=== PATIENT | female | born 1985 | race Caucasian/White ===

== ENCOUNTER 2018-07-06 07:09 | Inpatient (IN) | payer OTHER ==
[2018-07-06] MEDS ORDERED: Nalbuphine 20 MG/ML 1 ML Syringe IVPUSH PRN (07:54)
[2018-07-06] MEDS ORDERED: Ondansetron 4 MG/2 ML SDV IVPUSH PRN (07:54)
[2018-07-06] MEDS ORDERED: Acetaminophen 325 MG Tab PO PRN (07:54)
[2018-07-06] MEDS ORDERED: Sodium Chloride 0.9% 10 ML Syringe FLUSH PRN (07:54)
[2018-07-06] MEDS ORDERED: Oxytocin/Lactated Ringers 10 UNIT/1,000 ML BAG IV SCH (08:00)
[2018-07-06] MEDS ORDERED: Oxytocin/Lactated Ringers 20 UNIT/1,000 ML BAG IV SCH (08:00)
[2018-07-06] MEDS: Lactated Ringers 1,000 ML IV SCH ×3 (08:25→20:14)
--- NOTE | 2018-07-06 09:44 | PCM.LDHP ---
L&D History of Present Illness - General Date of Service: 07/06/18 Admit Problem/Dx: Patient Status Order with Admit Dx/Problem 07/06/18 07:54 Patient Status [ADT] Routine Admission Diagnosis/Problem Admission Diagnosis/Problem 07/06/18 09:24 33-year-old 2 para 1001 white female in for elective induction of labor at 39-3/7 weeks gestational age JONAS of 07/10/2018 Source of Information: Patient History Limitations: Reports: No Limitations - History of Present Illness Introduction:: Светлана is a 33-year-old 2 para 1001 white female with an JONAS of the 2018 placing her at 39-3/7 weeks gestational age upon admission for elective induction of labor. Patient's JONAS is set by a certain last menstrual period which started on 10/03/2017 and is supported by 2 ultrasounds done on 2017 and 06/20/2018. Her menarche was age 13, menstrual cycles every 30 days using no control to time conception. LMP certain and definite occurring on 10/03/2017. Past obstetric experience includes a delivery of a female infant on 01/30/2016 at 38 weeks gestational age7 lbs. 7 oz.NSVDepidural for pain control labor. history. Patient has been on baby aspirin 81 mg daily for prophylaxis for preeclampsia as she had preeclampsia with her first . Declines flu vaccination and she declined genetic evaluation. She desires epidural in L&D. Patient has had some borderline elevated blood pressure readings but recently they have been within normal limits. She is group B strep negative. She has a history of gestational diabetes, is on glyburide 2.5 mg by mouth every at bedtime and has had reasonably good blood sugars. Blood sugars appeared to be under good control. She has had some borderline elevated blood pressures at home but recently in clinic they have been entirely normal. She plans to breast- feed. She declined T dap Vaccination she has a history of genital HSV infection. She has been on acyclovir 400 mg by mouth 3 times a day times last 4 weeks. She has no symptoms or signs of genital HSV infection at this time. Patient's weight gain has been from 193-205.6 pounds for approximately a 13 pound weight gain. Fundal height growth has been somewhat ahead of schedule however baby has been riding very high and this is felt to be the potential cause. Laboratory testing and shows blood to be O+ with negative antibody screen. Hemoglobin first middle visit was 13.1 g/dL and platelets are 284,000. She is rubella immune. RPR is nonreactive. Urine culture was unremarkable. HIV assay was negative. Patient declined GC and chlamydia. Second trimester testing showed a hemoglobin of 12.3 g/dL. Platelets are 292,000. One-hour GTT was elevated and patient had an abnormal 3 hour GTT given her the diagnosis of gestational diabetes. Follow-up with labs at home consisting four-time per day blood sugars which have been within normal limits. She was started on glyburide for some mildly elevated a.m. blood sugars. Group B strep screen was negative. Allergies: T dap vaccines (Adacel) which caused seizure Medications: 1. Acyclovir 400 mg by mouth 3 times a day for genital HSV prophylaxis 2. Glyburide 2.5 mg by mouth daily at bedtime 3. Baby aspirin-81 mg daily 4. Zofran or milligrams orally when necessary for nausea 5. vitamins 1 daily. Past medical history: 1. 01/30/2016 2. Preeclampsia with last . 3. Scoliosis Past surgical history: Unremarkable Family history: Mother is alive with hypertension and hypothyroidismon meds. Father with adult onset diabetes mellitusdiet controlled. 2 brothers and one sister are alive and well. Maternal grandmother is secondary to old age. Maternal grandfather secondary to lung and heart problems related to smoking and drinking- at age 40. Paternal grandmother is alive and has a history of adult-onset diabetes. Paternal grandfather is secondary to lung cancerwas a smoker. No anesthesia, bleeding, blood clotting problems or Rensi problems noted in the family. Social history: Patient is , lives in [facility], is Hardik. She does not use any significant most alcohol, drugs or tobacco. Review of systems: In general patient has no complaints. He has been active. Occasional contractions over the weekend. No loss of fluid or actual labor. Skin: Negative Lungs: No infectious symptoms or shortness of breath Cardiovascular: No chest pain or exercise intolerance Breasts: No lumps, changes in size, pain, dimpling, discharge or axillary or supraclavicular concerns. Changes associated with . GI: Negative : Negative Musculoskeletal: Negative Neurological: Negative In general the patient is well-developed, well-nourished, pleasant female of stated age in no acute distress. Skin is warm dry without lesions. HEENT, neck and back within normal limits. Lungs are clear with good breath sounds in all lung watters. Cardiovascular exam shows regular and rhythm without murmurs. Breast exam deferred having been done earlier in . Abdomen is flat, soft, nontender without masses or organomegaly. Positive bowel sounds are noted. No inguinal lymphadenopathy or hernias are noted. Genital cervix is 1 cm, 80% effaced, soft, -4 station, cephalic presentationconfirmed by ultrasound.. Extremities and neurological exam are grossly within normal limits. - Related Data Allergies/Adverse Reactions: Allergies Allergy/AdvReac Type Severity Reaction Status Date / Time No Known Allergies Allergy Verified 07/06/18 07:53 Home Medications: Home Meds Acyclovir 400 mg PO TID 07/06/18 [History] Aspirin 81 mg PO DAILY 07/06/18 [History] Ondansetron [Ondansetron ODT] 4 mg BUCCAL Q6HR PRN 07/06/18 [History] PNV95/Ferrous Fumarate/FA [ Tablet] 1 tab PO DAILY 07/06/18 [History] glyBURIDE [Glyburide] 2.5 mg PO BEDTIME 07/06/18 [History] H&P Review of Systems - Review of Systems: Review Of Systems: See Below L&D Exam - Exam Exam: See Below - Vital Signs Weight: 94.347 kg - Patient Data Lab Results Last 24 hrs: Laboratory Results - last 24 hr 07/06/18 Range/Units 07:52 WBC 9.65 (3.98-10.04) K/mm3 RBC 4.27 (3.98-5.22) M/mm3 Hgb 11.9 (11.2-15.7) gm/L Hct 35.8 (34.1-44.9) % MCV 83.8 (79.4-94.8) fl MCH 27.9 (25.6-32.2) pg MCHC 33.2 (32.2-35.5) g/dl RDW Std Deviation 43.2 (36.4-46.3) fL Plt Count 284 (182-369) K/mm3 MPV 10.1 (9.4-12.3) fl Neut % (Auto) 69.1 (34.0-71.1) % Lymph % (Auto) 18.8 L (19.3-51.7) % [place] % (Auto) 9.5 (4.7-12.5) % Eos % (Auto) 1.7 (0.7-5.8) Baso % (Auto) 0.2 (0.1-1.2) % Neut # (Auto) 6.67 H (1.56-6.13) K/mm3 Lymph # (Auto) 1.81 (1.18-3.74) K/mm3 [place] # (Auto) 0.92 H (0.24-0.36) K/mm3 Eos # (Auto) 0.16 (0.04-0.36) K/mm3 Baso # (Auto) 0.02 (0.01-0.08) K/mm3 Result Diagrams: 07/06/18 07:52 Problem List Initiated/Reviewed/Updated: Yes Orders Last 24hrs: Active Orders 24 hr Category Date Time Status Patient Status [ADT] Routine ADT 07/06/18 07:54 Active Activity as Tolerated [RC] PFP Care 07/06/18 07:54 Active Communication Order [RC] ASDIRECTED Care 07/06/18 07:54 Active Heart Tones [RC] ASDIRECTED Care 07/06/18 07:54 Active Influenza Vaccine Charge [RC] .DISCHARGE Care 07/06/18 08:53 Active Notify Provider [RC] PFP Care 07/06/18 07:54 Active Notify Provider [RC] PRN Care 07/06/18 07:54 Active Peripheral IV Care [RC] . DIRECTED Care 07/06/18 07:54 Active Pump Management, Intrathecal [RC] ASDIRECTED Care 07/06/18 07:55 Active Urinary Catheter Assessment [RC] ASDIRECTED Care 07/06/18 07:54 Active Vital Signs [RC] PER UNIT ROUTINE Care 07/06/18 07:54 Active Regular Diet [DIET] Diet 07/06/18 Lunch Active RAPID PLASMA REAGIN,RPR [CHEM] Routine Lab 07/07/18 06:00 Ordered Acetaminophen [Tylenol] Med 07/06/18 07:54 Active 650 mg PO Q4H PRN Lactated Ringers [Ringers, Lactated] 1,000 ml Med 07/06/18 08:00 Active IV ASDIRECTED Nalbuphine [Nubain] Med 07/06/18 07:54 Active 10 mg IVPUSH Q2H PRN Ondansetron [Zofran] Med 07/06/18 07:54 Active 4 mg IVPUSH Q4H PRN Oxytocin/Lactated Ringers [Pitocin in LR 10 Units/1,000 Med 07/06/18 08:00 Active ML] 10 unit in 1,000 ml IV TITRATE Oxytocin/Lactated Ringers [Pitocin in LR 20 Units/1,000 Med 07/06/18 08:00 Active ML] 20 unit in 1,000 ml IV TITRATE Sodium Chloride 0.9% [Saline Flush] Med 07/06/18 07:54 Active 10 ml FLUSH ASDIRECTED PRN Electronic Heart Tones Ext w TOCO [WOMSER] Oth 07/06/18 07:54 Ordered Routine Electronic Heart Tones Internal [WOMSER] Per Unit Oth 07/06/18 07:54 Ordered Routine Peripheral IV Insertion Adult [OM.PC] Routine Oth 07/06/18 07:54 Ordered Resuscitation Status Routine Resus Stat 07/06/18 07:54 Ordered Medication Orders Acetaminophen (Tylenol) 650 mg PO Q4H PRN PRN Reason: Pain (Mild 1-3) and fever Lactated Ringer's (Ringers, Lactated) 1,000 mls @ 100 mls/hr IV ASDIRECTED [facility] Last Admin: 07/06/18 08:25 Dose: 100 mls/hr Oxytocin/Lactated Ringer's (Pitocin In Lr 10 Units/1,000 Ml) 10 unit in 1,000 mls @ 12 mls/hr IV TITRATE [facility]; Protocol Last Admin: 07/06/18 08:26 Dose: 2 munits/min, 12 mls/hr Oxytocin/Lactated Ringer's (Pitocin In Lr 20 Units/1,000 Ml) 20 unit in 1,000 mls @ 499.03 mls/hr IV TITRATE [facility]; Protocol Nalbuphine HCl (Nubain) 10 mg IVPUSH Q2H PRN PRN Reason: pain Ondansetron HCl (Zofran) 4 mg IVPUSH Q4H PRN PRN Reason: Nausea/Vomiting Sodium Chloride (Saline Flush) 10 ml FLUSH ASDIRECTED PRN PRN Reason: Keep Vein Open Assessment/Plan Comment:: 1. 39-3/7 week intrauterine , admitted for elective induction of labor 2. Gestational diabetes under good control with diet, activity and glyburide therapy. 3. Group B strep screen negative 4. Patient desires epidural for labor analgesia 5. Patient plans to breast-feed 6. History of genital HSVon acyclovir prophylaxis since 36 weeks with no signs/ symptoms of HSV infection at present 7. Patient declined flu vaccination and T dap 8. Patient has a history of preeclampsia with first , has been on baby aspirin 81 mg per day throughout this , borderline blood pressure evaluations at home but were normal in clinic. Plan: 1. Pitocin induction of labor, anticipate . 2. Epidural for analgesia 3. CBC upon admission. RPR upon admission.
--- NOTE | 2018-07-06 10:20 | PCM.PREANE ---
Preanesthetic Assessment - Anesthesia/Transfusion/Family Hx Anesthesia History: Prior Anesthesia Without Reaction Family History of Anesthesia Reaction: No Transfusion History: No Prior Transfusion(s) - Review of Systems General: No Symptoms Pulmonary: No Symptoms Cardiovascular: No Symptoms Gastrointestinal: Abdominal Pain (labor contractions) Neurological: Seizure (as baby with T-dap vacinee) - Physical Assessment Pulse: 84 O2 Sat by Pulse Oximetry: 98 Respiratory Rate: 18 Blood Pressure: 139/91 Temperature: 36.3 C Height: 1.7 m Weight: 94.347 kg ASA Class: 2 Mental Status: Alert & Oriented x3 Airway Class: Mallampati = 1 Dentition: Reports: Normal Dentition Thyro-Mental Finger Breadths: 3 Mouth Opening Finger Breadths: 3 ROM/Head Extension: Full Lungs: Clear to Auscultation, Normal Respiratory Effort Cardiovascular: Regular Rate, Regular Rhythm - Lab Values: Laboratory Last Values WBC 9.65 K/mm3 (3.98-10.04) 07/06/18 07:52 RBC 4.27 M/mm3 (3.98-5.22) 07/06/18 07:52 Hgb 11.9 gm/L (11.2-15.7) 07/06/18 07:52 Hct 35.8 % (34.1-44.9) 07/06/18 07:52 MCV 83.8 fl (79.4-94.8) 07/06/18 07:52 MCH 27.9 pg (25.6-32.2) 07/06/18 07:52 MCHC 33.2 g/dl (32.2-35.5) 07/06/18 07:52 RDW Std Deviation 43.2 fL (36.4-46.3) 07/06/18 07:52 Plt Count 284 K/mm3 (182-369) 07/06/18 07:52 MPV 10.1 fl (9.4-12.3) 07/06/18 07:52 Neut % (Auto) 69.1 % (34.0-71.1) 07/06/18 07:52 Lymph % (Auto) 18.8 % (19.3-51.7) L 07/06/18 07:52 [place] % (Auto) 9.5 % (4.7-12.5) 07/06/18 07:52 Eos % (Auto) 1.7 (0.7-5.8) 07/06/18 07:52 Baso % (Auto) 0.2 % (0.1-1.2) 07/06/18 07:52 Neut # (Auto) 6.67 K/mm3 (1.56-6.13) H 07/06/18 07:52 Lymph # (Auto) 1.81 K/mm3 (1.18-3.74) 07/06/18 07:52 [place] # (Auto) 0.92 K/mm3 (0.24-0.36) H 07/06/18 07:52 Eos # (Auto) 0.16 K/mm3 (0.04-0.36) 07/06/18 07:52 Baso # (Auto) 0.02 K/mm3 (0.01-0.08) 07/06/18 07:52 - Allergies Allergies/Adverse Reactions: Allergies Allergy/AdvReac Type Severity Reaction Status Date / Time diphtheria,pertussis Allergy Seizure Verified 07/06/18 09:42 (acellular),te [From Adacel(Tdap Adolesn/Adult)(PF)] - Acknowledgements Anesthesia Type Planned: Epidural Pt an Appropriate Candidate for the Planned Anesthesia: Yes Alternatives and Risks of Anesthesia Discussed w Pt/Guardian: Yes Pt/Guardian Understands and Agrees with Anesthesia Plan: Yes PreAnesthesia Questionnaire Cardiovascular History: Reports: Other (See Below) Other Cardiovascular History: hx of preeclampsia Gastrointestinal History: Reports: [employer]ER History: Reports: Neurological History: Reports: Seizure Other Neuro History: Had seizure with TDAP administration Endocrine/Metabolic History: Reports: Diabetes, Gestational - Infectious Disease History Infectious Disease History: Reports: Herpes - Past Surgical History Neurological Surgical History: Reports: Scoliosis - SUBSTANCE USE Smoking Status *Q: Never Smoker Tobacco Use Within Last Twelve Months: No Second Hand Smoke Exposure: No Days Per Week of Alcohol Use: 0 Number of Drinks Per Day: 0 Total Drinks Per Week: 0 Recreational Drug Use History: No - HOME MEDS Home Medications: Home Meds Acyclovir 400 mg PO TID 07/06/18 [History] Aspirin 81 mg PO DAILY 07/06/18 [History] Ondansetron [Ondansetron ODT] 4 mg BUCCAL Q6HR PRN 07/06/18 [History] PNV95/Ferrous Fumarate/FA [ Tablet] 1 tab PO DAILY 07/06/18 [History] glyBURIDE [Glyburide] 2.5 mg PO BEDTIME 07/06/18 [History] - CURRENT (IN HOUSE) MEDS Current Meds: Current Medications Acetaminophen (Tylenol) 650 mg PO Q4H PRN PRN Reason: Pain (Mild 1-3) and fever Lactated Ringer's (Ringers, Lactated) 1,000 mls @ 100 mls/hr IV ASDIRECTED [facility] Last Admin: 07/06/18 08:25 Dose: 100 mls/hr Oxytocin/Lactated Ringer's (Pitocin In Lr 10 Units/1,000 Ml) 10 unit in 1,000 mls @ 12 mls/hr IV TITRATE [facility]; Protocol Last Titration: 07/06/18 09:30 Dose: 6 munits/min, 36 mls/hr Oxytocin/Lactated Ringer's (Pitocin In Lr 20 Units/1,000 Ml) 20 unit in 1,000 mls @ 499.03 mls/hr IV TITRATE [facility]; Protocol Influenza Virus Vaccine (Fluzone Quad Syringe) 60 mcg IM .ONCE ONE Stop: 07/07/18 09:01 Nalbuphine HCl (Nubain) 10 mg IVPUSH Q2H PRN PRN Reason: pain Ondansetron HCl (Zofran) 4 mg IVPUSH Q4H PRN PRN Reason: Nausea/Vomiting Sodium Chloride (Saline Flush) 10 ml FLUSH ASDIRECTED PRN PRN Reason: Keep Vein Open Discontinued Medications Influenza Virus Vaccine (Pharmacy To Dose - Influenza Vaccine) 1 each IM ONETIME ONE Stop: 07/07/18 09:01 Influenza Virus Vaccine (Fluzone Quad Syringe) 60 mcg IM .ONCE ONE Stop: 07/06/18 09:16
[2018-07-06] MEDS ORDERED: ePHEDrine 50 MG/ML SDV IVPUSH PRN (10:43)
[2018-07-06] MEDS ORDERED: fentaNYL 100 MCG/2 ML SDV EPIDUR PRN (10:43)
[2018-07-06] MEDS ORDERED: diphenhydrAMINE 50 MG/ML SDV IVPUSH PRN (10:43)
[2018-07-06] MEDS ORDERED: fentaNYL/Bupivacaine-NS 2 MCG/ML-0.125%/PF 100 ML Bag EP SCH (10:45)
[2018-07-06] MEDS ORDERED: Bupivacaine 0.25% 10 ML SDV ONE (22:00)
--- NOTE | 2018-07-06 22:05 | PCM.SN ---
- Free Text/Narrative Note: Delivery note: Светлана is a 33-year-old 2 now para 2002 white female who is admitted this a.m. 07/06/2018 for elective induction of labor at 39-3/7 weeks gestational age with an JONAS of 07/10/2018. Patient was given Pitocin initially to start labor and this was followed by artificial rupture membranes with resultant clear amniotic fluid. She had an epidural for labor analgesia. She is progressed slowly to approximately 6 cm and more rapidly up to 10. She pushed with 2 separate contractions and delivered a viable, alexander, female infant named Drea Kitchen at 2141 hrs on 07/06/2018. Baby delivered in a right occiput anterior position, weight 4300 g (9 pounds 7.7 ounces) and was 21.25 inches long. Her scores were 7 and 9. Baby was placed on mom's abdomen. Nose and mouth were bulb suctioned. IV Pitocin was started to facilitate increase in uterine tone and decrease likelihood of bleeding. The patient had a second-degree laceration which was repaired with 3-0 Monocryl suture in a routine fashion. Epidural being used for anesthesia. The placenta delivered at a Delgado presentation, appeared complete and intact and was discarded per patient desire. The umbilical cord had 3 blood vessels. Estimated blood loss 100 mL. Patient plans to breast-feed. Condition: Good
[2018-07-07] MEDS ORDERED: Witch Hazel Medicated Pads 100/Jar TOP PRN (00:13)
[2018-07-07] MEDS ORDERED: Lanolin 100% Cream 7 GM Tube TOP PRN (00:13)
[2018-07-07] MEDS ORDERED: Acetaminophen 325 MG Tab PO PRN (00:13)
[2018-07-07] MEDS ORDERED: Benzocaine/Menthol 20%-0.5% Spray 56 GM Canister TOP PRN (00:13)
[2018-07-07] MEDS: Ibuprofen 600 MG Tab PO PRN ×4 (02:06→20:14)
[2018-07-07] MEDS: Docusate Sodium 100 MG Cap PO PRN (02:06)
--- NOTE | 2018-07-07 06:27 | PCM.SN ---
- Free Text/Narrative Note: note: Patient is doing well in the period. Minimal lochia, voiding well, ambulated without problems. Nursing without concerns. Patient is afebrile, vital signs are stable Abdomen is flat, soft, uterus is below the umbilicus and is firm and nontender. Legs are nontender. Assessment: recovery going well. Plan: Routine care. Patient be discharged home within the next 24-48 hours.
--- NOTE | 2018-07-07 08:47 | PCM48HPAN ---
Post Anesthesia Note - EVALUATION WITHIN 48HRS OF ANESTHETIC Vital Signs in Normal Range: Yes Patient Participated in Evaluation: Yes Respiratory Function Stable: Yes Airway Patent: Yes Cardiovascular Function Stable: Yes Hydration Status Stable: Yes Pain Control Satisfactory: Yes Nausea and Vomiting Control Satisfactory: Yes Mental Status Recovered: Yes - COMMENTS/OBSERVATIONS Free Text/Narrative:: patient denied any post anesthesia complications
[2018-07-07] MEDS: Prenatal Multivitamin with Calcium/Folic Acid/Iron Tab PO SCH (09:25)
[2018-07-08] MEDS: Ibuprofen 600 MG Tab PO PRN ×2 (00:12→06:47)
[2018-07-08] MEDS: Docusate Sodium 100 MG Cap PO PRN (02:35)
--- NOTE | 2018-07-08 05:47 | PCM.DCSUM1 ---
Discharge Summary - Hospital Course Free Text/Narrative:: Светлана is a 33-year-old 2 now para 2002 white female who is admitted on the a.m. 07/06/2018 for elective induction of labor at 39-3/7 weeks gestational age with an JONAS of 07/10/2018. Patient was given Pitocin initially to start labor and this was followed by artificial rupture membranes with resultant clear amniotic fluid. She had an epidural for labor analgesia. She is progressed slowly to approximately 6 cm and more rapidly up to 10. She pushed with 2 separate contractions and delivered a viable, alexander, female named Drea Kitchen at 2141 hrs on 07/06/2018. Baby delivered in a right occiput anterior position, weight 4300 g (9 pounds 7.7 ounces) and was 21.25 inches long. Her scores were 7 and 9. Baby was placed on mom's abdomen. Nose and mouth were bulb suctioned. IV Pitocin was started to facilitate increase in uterine tone and decrease likelihood of bleeding. The patient had a second-degree laceration which was repaired with 3-0 Monocryl suture in a routine fashion. Epidural being used for anesthesia. The placenta delivered at a Delgado presentation, appeared complete and intact and was discarded per patient desire. The umbilical cord had 3 blood vessels. Estimated blood loss 100 mL. Patient is doing well breast feeding. She has minimal lochia. She is ambulating well and voiding without concerns. She is desiring discharge home. Diagnosis: Stroke: No - Discharge Data Discharge Date: 07/08/18 Discharge Disposition: Home, Self-Care 01 Condition: Good - Patient Instructions Diet: Regular Diet as Tolerated (Nursing diet with increased calories and calcium as recommended) Activity: As Tolerated (No intercourse or tampons until bleeding resolves) Driving: May Drive Today Showering/Bathing: May Shower (May take a bath) Notify Provider of: Fever, Increased Pain, Swelling and Redness, Nausea and/or Vomiting - Discharge Plan Home Medications: Home Meds Acyclovir 400 mg PO TID 07/06/18 [History] Aspirin 81 mg PO DAILY 07/06/18 [History] Ondansetron [Ondansetron ODT] 4 mg BUCCAL Q6HR PRN 07/06/18 [History] PNV95/Ferrous Fumarate/FA [ Tablet] 1 tab PO DAILY 07/06/18 [History] glyBURIDE [Glyburide] 2.5 mg PO BEDTIME 07/06/18 [History] Referrals: Soy Hernandez MD [Primary Care Provider] - (Return to clinicDr. Hernandez2 weeks.) - Discharge Summary/Plan Comment DC Time >30 min.: No Discharge Summary/Plan Comment: Discharge instructions: 1. Discharge home 2. Diet, activity and follow-up discussed with patient. Recommend nursing diet with increased calories and calcium. 3. Precautions given concern increased pain, bleeding, temperature, signs/ symptoms of DVT/PE. 4. Medications per home medication was printed, discussed with and given to the patient. 5. Return to clinic-Dr. Hernandez[facility] in 2 weeks. Diagnosis: Term -delivered Condition: Good - Patient Data Vitals - Most Recent: Last Vital Signs Temp 36.4 C 07/08/18 02:33 Pulse 69 07/08/18 02:33 Resp 16 07/08/18 02:33 BP 119/97 H 07/08/18 02:33 Pulse Ox 99 07/08/18 02:33 Weight - Most Recent: 94.347 kg I&O - Last 24 hours: Intake & Output 07/07/18 07/07/18 07/08/18 14:59 22:59 06:59 Intake Total 0 Balance 0 Med Orders - Current: Current Medications Acetaminophen (Tylenol) 650 mg PO Q4H PRN PRN Reason: mild pain or fever Last Admin: 07/07/18 23:56 Dose: 650 mg Benzocaine/Menthol (Dermoplast Pain Relief [place]) 0 gm TOP ASDIRECTED PRN PRN Reason: Perineal Comfort Measure Last Admin: 07/07/18 00:50 Dose: 1 applic Docusate Sodium (Colace) 100 mg PO BID PRN PRN Reason: Constipation Last Admin: 07/08/18 02:35 Dose: 100 mg Emollient Ointment (Lansinoh Hpa) 0 gm TOP ASDIRECTED PRN PRN Reason: Sore Nipples Ibuprofen (Motrin) 600 mg PO Q4H PRN PRN Reason: Mild pain or fever Last Admin: 07/08/18 00:12 Dose: 600 mg Prenat Multivit/Foster/Iron/Folic Ac ( Plus Iron) 1 each PO DAILY [facility] Last Admin: 07/07/18 09:25 Dose: 1 each Witch Drea (Tucks) 1 pad TOP ASDIRECTED PRN PRN Reason: Hemorrhoid pain Last Admin: 07/07/18 00:50 Dose: 1 applic Discontinued Medications Acetaminophen (Tylenol) 650 mg PO Q4H PRN PRN Reason: Pain (Mild 1-3) and fever Bupivacaine HCl (Sensorcaine-Mpf 0.25%) 10 ml .ROUTE .STK-MED ONE Stop: 07/06/18 22:01 Diphenhydramine HCl (Benadryl) 25 mg IVPUSH Q6H PRN PRN Reason: Itching Ephedrine Sulfate (Ephedrine Sulfate) 5 mg IVPUSH ASDIRECTED PRN PRN Reason: HYPOTENTSION Fentanyl (Sublimaze) 100 mcg EPIDUR Q3H PRN PRN Reason: Pain Last Admin: 07/06/18 20:07 Dose: 100 mcg Fentanyl/Bupivacaine HCl (Lykskcms-Qeijl-Ml 2 Mcg/Ml-0.125%) 100 ml EP ASDIRECTED [facility] Last Admin: 07/06/18 20:08 Dose: 100 ml Lactated Ringer's (Ringers, Lactated) 1,000 mls @ 100 mls/hr IV ASDIRECTED [facility] Last Admin: 07/06/18 20:14 Dose: 100 mls/hr Oxytocin/Lactated Ringer's (Pitocin In Lr 10 Units/1,000 Ml) 10 unit in 1,000 mls @ 12 mls/hr IV TITRATE [facility]; Protocol Last Titration: 07/06/18 15:30 Dose: 20 munits/min, 120 mls/hr Oxytocin/Lactated Ringer's (Pitocin In Lr 20 Units/1,000 Ml) 20 unit in 1,000 mls @ 499.03 mls/hr IV TITRATE [facility]; Protocol Oxytocin 20 unit/ Lactated (Ringer's) 1,002 mls @ 60.12 mls/hr IV TITRATE [facility]; Protocol Last Titration: 07/06/18 18:30 Dose: 22 munits/min, 66.13 mls/hr Influenza Virus Vaccine (Pharmacy To Dose - Influenza Vaccine) 1 each IM ONETIME ONE Stop: 07/07/18 09:01 Influenza Virus Vaccine (Fluzone Quad [id number] Syringe) 60 mcg IM .ONCE ONE Stop: 07/06/18 09:16 Influenza Virus Vaccine (Fluzone Quad [id number] Syringe) 60 mcg IM .ONCE ONE Stop: 07/07/18 09:01 Nalbuphine HCl (Nubain) 10 mg IVPUSH Q2H PRN PRN Reason: pain Ondansetron HCl (Zofran) 4 mg IVPUSH Q4H PRN PRN Reason: Nausea/Vomiting Last Admin: 07/06/18 23:50 Dose: 4 mg Sodium Chloride (Saline Flush) 10 ml FLUSH ASDIRECTED PRN PRN Reason: Keep Vein Open
[2018-07-08] MEDS: Prenatal Multivitamin with Calcium/Folic Acid/Iron Tab PO SCH (11:00)
== END 2018-07-08 10:45 | disposition home or self-care (01) | DRG 806 ==
LOC: JD.OB 07:09 → OBSVTOIN 07:54 → INTOOBSV 07:54 → JD.OB 14:29 → OBSVTOIN 21:41 → JD.OB 21:41
PROVIDERS: ADMIT Obstetrics & Gynecology; ATTEND Obstetrics & Gynecology
PROC: 10907ZC Drainage of Amniotic Fluid, Therapeutic from Products of Conception, Via Natural or Artificial Opening (ICD-10-PCS; principal; 2018-07-06)
PROC: 3E033VJ Introduction of Other Hormone into Peripheral Vein, Percutaneous Approach (ICD-10-PCS; principal; 2018-07-06)
PROC: 10E0XZZ Delivery of Products of Conception, External Approach (ICD-10-PCS; principal; 2018-07-06)
PROC: 0KQM0ZZ Repair Perineum Muscle, Open Approach (ICD-10-PCS; principal; 2018-07-06)
PROC: 3E0R3BZ Introduction of Anesthetic Agent into Spinal Canal, Percutaneous Approach (ICD-10-PCS; 2018-07-06)
PROC: 00HU33Z Insertion of Infusion Device into Spinal Canal, Percutaneous Approach (ICD-10-PCS; 2018-07-06)
PROC: 3E02340 Introduction of Influenza Vaccine into Muscle, Percutaneous Approach (ICD-10-PCS; 2018-07-08)
DX: O24.425 Gestational diabetes mellitus in childbirth, controlled by oral hypoglycemic drugs (principal); O98.32 Other infections with a predominantly sexual mode of transmission complicating childbirth; Z37.0 Single live birth; A60.00 Herpesviral infection of urogenital system, unspecified; Z3A.39 39 weeks gestation of pregnancy; O70.1 Second degree perineal laceration during delivery; Z79.82 Long term (current) use of aspirin; Z23 Encounter for immunization; Z88.7 Allergy status to serum and vaccine
CPT/HCPCS: 36415; 51701; 59025; 59409; 85025; 90686; A9270-GY; J2405; J2590; J3010; J3490; J7120